=== PATIENT | female | born 2000 | race Caucasian/White ===

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

== ENCOUNTER → 2021-08-24 12:03 | Outpatient (CLI) | payer OTHER, SELFPAY ==
--- NOTE | ~2021-08-24 | MR_ITS ---
EXAMINATION: MR brain/brain stem wo/w con DATE: 08/24/2021 13:09 INDICATION: Migraines TECHNIQUE: Magnetic resonance imaging (MRI) of the brain and brainstem was performed without and with 9 mL Multihance intravenous contrast. Sequences included sagittal and axial T1-weighted SE, axial di ffusion-weighted FS SE, axial T2*-weighted GRE, axial T2-weighted FLAIR, and axial T2-weighted FSE. P ostcontrast axial and coronal T1-weighted SE was obtained. Apparent diffusion coefficient (ADC) maps were created. COMPARISON: None. FINDINGS: There are no areas of restricted diffusion to suggest acute infarction. No intracranial hemorrhage or abnormal intracranial mass lesion. There are scattered areas of nonspecific increased T2-weighted si gnal intensity in the cerebral white matter, predominantly involving the deep and periventricular whi te matter. There are no intraparenchymal signal abnormalities seen on the other pulse sequences. The ventricles are symmetric and normal in size. There are no abnormal extra-axial fluid collections. Arnulfo w voids are seen in the cerebral arteries on the T2-weighted sequences consistent with their expected patency. Visualized orbits and soft tissues are unremarkable. There is rightward bowing of the nasal septum. There are no areas of abnormal enhancement on the post contrast images. IMPRESSION: 1. Normal brain. Reviewed, dictated and finalized at location B. IMPRESSION: 1. Normal brain.
[2021-08-24 12:52] LABS: Estimated Glomerular Filt Rate > 60
== END ==
PROVIDERS: PCP Student in an Organized Health Care Education/Training Program; Visit Provider Student in an Organized Health Care Education/Training Program
DX: G43.019 Migraine without aura, intractable, without status migrainosus (principal)
CPT/HCPCS: 70553; A9577

== ENCOUNTER 2021-09-13 23:47 | Emergency (ER) | payer OTHER, SELFPAY ==
[2021-09-14 00:06] VITALS: BP 139/89; PULSE 102; RESP 26; TEMP 36.7; O2SAT 100
[2021-09-14 00:48] LABS: Appearance Urine Clear (Clear); Bilirubin Urine Negative (Negative); Blood Urine 3+ (Negative); Glucose Urine UA Negative (Negative); Ketones Urine Negative (Negative); Leukocyte Esterase Ur Negative LEU/UL (Negative); Nitrate Urine Negative (Negative); Protein Urine Negative (Negative); Urobilinogen Urine 0.2 mg/dL (<2.0)
[2021-09-14 00:50] LABS: Bacteria Urine Trace /hpf; Mucus Urine Rare /lpf; RBC Urine 0-2 /hpf (0-2); Squamous Epithelial Cell Urine Occasional /hpf (Few); WBC Urine 0-3 /hpf
[2021-09-14 00:55] LABS: Add Urine Microscopic? YES; Color Urine Light Yellow (Yellow)
--- NOTE | 2021-09-14 01:10 | ED.HA ---
HPI - Headache General Chief Complaint: Headache Stated Complaint: migraine x 30 min Time Seen by Provider: 09/14/21 00:51 Source: patient History of Present Illness HPI Narrative: Patient presents with a headache. Patient ports a history of migraines. This current migraine started approximately 2 hours prior to my evaluation. Reports that started in her left hinduism and over the right hinduism she took her sumatriptan and without relief of her symptoms started to hyperventilate this evening so she came the ER for further management. Reports she does see her primary care doctor she has been on multiple medications for prophylaxis but is not found a good regiment. Also ports she has had a recent MRI that was unremarkable. Patient denies any nausea and vomiting right now she denies any signs focal numbness or weakness denies any changes in vision. Related Data Allergies Allergy/AdvReac Type Severity Reaction Status Date / Time No Known Allergies Allergy Verified 09/14/21 01:15 Review of Systems Review of Systems: GENERAL: Well-appearing, well-nourished, and in no acute distress. HEAD: Normocephalic, atraumatic. EYES: PERRLA and EOMI. ENT: Nares clear, no rhinorrhea or epistaxis. Mucous membranes moist. NECK: Supple. No masses. No JVD EXTREMITIES: Normal range of motion. No edema. SKIN: Warm, dry, no rash. NEURO: No focal deficits. Alert and oriented x3. PSYCH: Normal mood and affect. All systems reviewed & are unremarkable except as noted in HPI and below PMFSH Family History Family History Other Family history of arthritis Family history of cardiovascular disease Family history of malignant neoplasm of bone Family history of malignant neoplasm of breast Social History Social History Smoking status: Never smoker Alcohol intake: never Exam Narrative: GENERAL: Well-appearing, well-nourished, and in no acute distress. HEAD: Normocephalic, atraumatic. EYES: PERRLA and EOMI. ENT: Nares clear, no rhinorrhea or epistaxis. Mucous membranes moist. NECK: Supple. No masses. No JVD EXTREMITIES: Normal range of motion. No edema. SKIN: Warm, dry, erythema noted the left AC joint there is some central clearing NEURO: No focal deficits. Alert and oriented x3. PSYCH: Normal mood and affect. Course Reevaluation(s) Reevaluation #1: Patient sleeping comfortably feeling much improved given improvement she is appropriate for continued outpatient therapies. Date: 09/14/21 Time: 02:52 Vital Signs Vital signs: Vital Signs Temperature 36.7 C 09/14/21 00:06 Pulse Rate 102 H 09/14/21 00:06 Respiratory Rate 26 H 09/14/21 00:06 Blood Pressure 139/89 09/14/21 00:06 Pulse Oximetry 100 09/14/21 00:06 Oxygen Delivery Room Air 09/14/21 00:06 Temperature 36.7 C 09/14/21 00:06 Pulse Rate 89 09/14/21 03:05 Respiratory Rate 16 09/14/21 03:05 Blood Pressure 106/68 09/14/21 03:05 Pulse Oximetry 99 09/14/21 03:05 Oxygen Delivery Room Air 09/14/21 00:06 MDM - Headache MDM Narrative Medical decision making narrative: H&P as above, vss, pt looks clinically well, exam without focal neurological deficits, prior imaging reviewed and was clinically unremarkable, additional labs/img considered, symptomatic relief available as needed, on reevaluation pt continues to looks clinically well. Suspect migraine headache, dns intracranial hemorrhage, mass, encephalitis, meningitis. plan to tx/monitor as op w/ pcm f/u findings/plan discussed with pt, pt agree/comfortable with plan, return precautions given. Family also asked about rash in the left AC been attempting topical antifungals for 1 month relief. Symptoms are present [place] time topical steroids. Lab Data Labs: Lab Results 09/14/21 Range/Units 00:26 Urine Color Light yellow (Yellow) Urine Appearance Clear (Clear)
[2021-09-14] MEDS: SODIUM CHLORIDE 0.9% IV 1,000 ML 999 ML IV CONT (01:20)
[2021-09-14] MEDS: PROCHLORPERAZINE EDISYLATE 10 MG/2 ML VIAL IV PUSH (01:22)
[2021-09-14] MEDS: KETOROLAC 15 MG/ML VIAL (*BKC) IV PUSH (01:22)
[2021-09-14] MEDS: diphenhydrAMINE HCl INJ 50 MG/ML VIAL 25 MG IV PUSH (01:24)
[2021-09-14 03:05] VITALS: BP 106/68; PULSE 89; RESP 16; O2SAT 99
== END 2021-09-14 03:10 | disposition home or self-care (01) ==
PROVIDERS: Emergency Provider Emergency Medicine; PCP Student in an Organized Health Care Education/Training Program
DX: G43.909 Migraine, unspecified, not intractable, without status migrainosus (principal); L30.9 Dermatitis, unspecified
CPT/HCPCS: 81001; 81025; 96365; 96375; 99284; J0131; J0780; J1200; J1885; J7030